=== PATIENT | female | born 1960 ===

== ENCOUNTER 2021-11-12 06:01 | Day surgery (SDC) | payer OTHER ==
[~2021-11-12] VITALS: Ht 162.6 cm; Wt 79.4 kg
[~2021-11-12 06:01] MED LIST: ASPI81EC; ATOR10; LEVSOD100; OXYACE5T PO; OXYACE7.5T PO; PROM25S PR; ZOCOR20 MG PO
--- NOTE | 2021-11-12 06:55 | NUR ---
[facility] in [facility] warming gown applied. History, Chart, Medications and Allergies reviewed before start of procedure.Lungs clear T/O to Auscultation. Patient confirms NPO status and agrees with scheduled surgery. Pre-Op teaching done. Pt verbalizes understanding. Patient States Post-Procedure ride home has been arranged. Patient reports completing Chlorhexadine shower X2 prior to admission to hospital.
--- NOTE | 2021-11-12 07:13 | NUR ---
ASSUMED CARE OF PATIENT
--- NOTE | 2021-11-12 07:55 | NUR ---
11/12/21 0755 Neto Fuentes NO ANTIBIOTICS PER .
[2021-11-12] MEDS ORDERED: Norco 5-325 Ta1 EACH PO (12:13)
[2021-11-12] MEDS ORDERED: IBU800 MG PO (12:14)
--- NOTE | 2021-11-12 12:22 | NUR ---
DISCHARGE PAIN WELL CONTROLLED. EATING, DRINKING, & VOIDING WELL. NO VAG BLEEDING POST PACKING DC. SCRIPT SENT w/ PT. ESCORTED OUT VIA W/C.
== END 2021-11-12 12:22 | disposition home or self-care (01) ==
LOC: ORSCMMR 06:01 → ORD 07:30 → SURS 09:08 → ORSCMMR 12:22
PROVIDERS: Obstetrics & Gynecology
PROC: 0JQC0ZZ Repair Pelvic Region Subcutaneous Tissue and Fascia, Open Approach (ICD-10-PCS; principal; 2021-11-12 07:30)
PROC: 0TJB8ZZ Inspection of Bladder, Via Natural or Artificial Opening Endoscopic (ICD-10-PCS; principal; 2021-11-12 07:30)
DX: N81.10 Cystocele, unspecified (principal); E03.9 Hypothyroidism, unspecified; Z87.891 Personal history of nicotine dependence; E11.9 Type 2 diabetes mellitus without complications; Z79.899 Other long term (current) drug therapy
CPT/HCPCS: A9270; J0171; J1100; J1885; J2250; J2405; J2704; J3010; J7120